=== PATIENT | female | born 1950 | race Caucasian/White ===

== ENCOUNTER 2016-10-25 03:33 | Emergency (ER) | payer MEDICAID ==
[~2016-10-25] VITALS: Ht 165.1 cm; Wt 95.3 kg
[~2016-10-25 03:33] MED LIST: AMLO10TA2 PO; CARV6.252 PO; OMEP20CA10 PO; QUIN10TA PO
[2016-10-25] MEDS ORDERED: LORAZEPAM INJ 2 MG/ML VIAL ONE (03:39)
[2016-10-25] MEDS ORDERED: LORAZEPAM INJ 2 MG/ML VIAL IM ONE (04:00)
[2016-10-25 04:11] LABS: BASOPHILS # (AUTO) 0.1 /CMM (0.0-0.2); DIFF TOTAL % 100 %; EOSINOPHILS # (AUTO) 0.2 /CMM (0.0-0.7); EOSINOPHILS % (AUTO) 1.8 % (0.0-6.0); HEMATOCRIT 42 % (33-45); HEMOGLOBIN 13.8 g/dL (11.5-14.8); LYMPHOCYTES # (AUTO) 3.3 /CMM (0.8-4.8); LYMPHOCYTES % (AUTO) 35.8 % (20.0-44.0); MEAN CORPUSCULAR HEMOGLOBIN 27 PG (26.0-33.0); MEAN CORPUSCULAR HGB CONC 33 g/dl (31.0-36.0); MEAN CORPUSCULAR VOLUME 83 fL (82-100); MONOCYTES # (AUTO) 0.7 /CMM (0.1-1.30); MONOCYTES % (AUTO) 7.8 % (2.0-12.0); NEUTROPHILS % (AUTO) 53.6 % (43.0-81.0); PLATELET COUNT (AUTO) 208 /CMM (150-450); RED BLOOD CELL COUNT(AUTO) 5.05 MIL/uL (4.0-5.2); WHITE BLOOD COUNT (AUTO) 9.3 K/uL (4.3-11.0)
[2016-10-25 04:20] LABS: ANION GAP 9 (5-14); CARBON DIOXIDE 30 mmol/L (21-32); CHLORIDE 102 mmol/L (98-107); CREATININE 0.6 mg/dL (0.6-1.3); GFR 100 mL/min (>60); GLUCOSE 134 mg/dL (74-106); POTASSIUM 3.6 mmol/L (3.5-5.1); SODIUM SERUM 137 mmol/L (136-145); UREA NITROGEN, BLOOD 9 mg/dL (7-18)
[2016-10-25 04:26] LABS: TROPONIN I < 0.017 ng/mL (0.00-0.056)
[2016-10-25 04:39] VITALS: BP 112/70
== END 2016-10-25 04:40 | disposition home or self-care (01) ==
LOC: ER 03:36
DX: R07.89 Other chest pain (principal); E03.9 Hypothyroidism, unspecified; F41.9 Anxiety disorder, unspecified; I10 Essential (primary) hypertension; Z88.8 Allergy status to other drugs, medicaments and biological substances
CPT/HCPCS: 36415; 71010; 80048; 84484; 85025; 93005; 96372; 99285; A4606; J2060; Z7610

== ENCOUNTER 2018-05-15 20:48 | Emergency (ER) | payer MEDICARE, MEDICAID ==
[~2018-05-15] VITALS: Ht 162.6 cm; Wt 86.2 kg
[~2018-05-15 20:48] MED LIST changes: -AMLO10TA2 PO; +AMLO10TA6 PO
--- NOTE | 2018-05-15 21:17 | NUR ---
BBSELF FROM HOME C/C DULL LEFT SIDED CHEST PAIN RADIATING TO THE BACK X 3 DAYS . PT DID NOT TAKE HER ASA THIS MORNING. SKIN WARM AND DRY. PT IS AAOX4. RR EVEN AND UNLABORED. NO S/S OF ACUTE DISTRESS NOTED. PT AMBULATED WITH STEADY GAIT NOTED TO ER BED 7. PT PLACED ON LITERACY CONSULTANT AND POX. PT SAFETY AND COMFORT MEASURES IN PLACE. BEDSIDE FOR EVAL.
--- NOTE | 2018-05-15 21:19 | NUR ---
PT STATES +NAUSEA AND HEADACHE X3 DAYS. MADE AWARE
[2018-05-15 21:42] LABS: BASOPHILS # (AUTO) 0.1 /CMM (0.0-0.2); BASOPHILS % (AUTO) 0.7 % (0.0-2.0); EOSINOPHILS % (AUTO) 2.3 % (0.0-6.0); HEMATOCRIT 42 % (33-45); HEMOGLOBIN 13.9 g/dL (11.5-14.8); LYMPHOCYTES # (AUTO) 3.2 /CMM (0.8-4.8); LYMPHOCYTES % (AUTO) 37.1 % (20.0-44.0); MEAN CORPUSCULAR HGB CONC 33 g/dl (31.0-36.0); MEAN CORPUSCULAR VOLUME 84 fL (82-100); MONOCYTES # (AUTO) 0.5 /CMM (0.1-1.30); MONOCYTES % (AUTO) 5.7 % (2.0-12.0); NEUTROPHILS # (AUTO) 4.6 /CMM (1.8-8.9); NEUTROPHILS % (AUTO) 54.2 % (43.0-81.0); PLATELET COUNT (AUTO) 228 /CMM (150-450); RDW COEFFICIENT OF VARIATION 13.9 (11.5-15.0); RED BLOOD CELL COUNT(AUTO) 5.02 MIL/uL (4.0-5.2); WHITE BLOOD COUNT (AUTO) 8.6 K/uL (4.3-11.0)
[2018-05-15 21:50] LABS: CALCIUM, SERUM 8.7 mg/dL (8.5-10.1); CARBON DIOXIDE 30 mmol/L (21-32); CHLORIDE 102 mmol/L (98-107); CREATININE 0.7 mg/dL (0.6-1.3); GLUCOSE 162 mg/dL (74-106); SODIUM SERUM 135 mmol/L (136-145); UREA NITROGEN, BLOOD 11 mg/dL (7-18)
[2018-05-15 21:59] LABS: TROPONIN I < 0.017 ng/mL (0.00-0.056)
[2018-05-15] MEDS ORDERED: IV NS 0.9% 250 ML IV ONE (23:08)
[2018-05-15] MEDS ORDERED: CT SWABBABLE VALVE TRANS SET 1 EA INFUS.SET MC ONE (23:08)
[2018-05-15] MEDS ORDERED: IOHEXOL-350 100 ML VIAL IV ONE (23:08)
--- NOTE | 2018-05-15 23:16 | NUR ---
PT TO CT
--- NOTE | 2018-05-16 01:16 | NUR ---
Patient discharged to home in stable condition. Written and verbal after care instructions given. Patient verbalizes understanding of instruction.IV removed. Catheter intact and site benign. Pressure and 4x4 applied to site. No bleeding noted.
[2018-05-16 01:19] VITALS: BP 149/80
== END 2018-05-16 01:28 | disposition home or self-care (01) ==
LOC: ER 20:55
DX: S29.012A Strain of muscle and tendon of back wall of thorax, initial encounter (principal); I10 Essential (primary) hypertension; F41.9 Anxiety disorder, unspecified; E03.9 Hypothyroidism, unspecified; E78.00 Pure hypercholesterolemia, unspecified; Z98.890 Other specified postprocedural states; X58.XXXA Exposure to other specified factors, initial encounter; Y93.89 Activity, other specified; Y92.89 Other specified places as the place of occurrence of the external cause; Y99.8 Other external cause status
CPT/HCPCS: 36415; 71045; 71275; 80048; 84484; 85025; 93005; 99285; A4606; J7050; Q9967; Z7610

== ENCOUNTER 2019-02-13 12:58 | Emergency (ER) | payer MEDICARE, MEDICAID ==
[~2019-02-13] VITALS: Ht 165.1 cm; Wt 88.9 kg
[~2019-02-13 12:58] MED LIST changes: -AMLO10TA6 PO; +AMLO10TA7 PO; -OMEP20CA10 PO; +OMEP20CA11 PO
--- NOTE | 2019-02-13 13:04 | NUR ---
BIBDAUGHTER FOR CP X COUPLE OF DAYS; PT AAOX4, -SOB, NAD NOTED, PT ON MONITOR, VSS, PENDING MD YANG
[2019-02-13 13:45] LABS: BASOPHILS # (AUTO) 0.1 /CMM (0.0-0.2); BASOPHILS % (AUTO) 1.3 % (0.0-2.0); EOSINOPHILS % (AUTO) 2.2 % (0.0-6.0); HEMATOCRIT 41 % (33-45); HEMOGLOBIN 14.1 g/dL (11.5-14.8); LYMPHOCYTES # (AUTO) 2.7 /CMM (0.8-4.8); LYMPHOCYTES % (AUTO) 35.4 % (20.0-44.0); MEAN CORPUSCULAR HGB CONC 34 g/dl (31.0-36.0); MEAN CORPUSCULAR VOLUME 85 fL (82-100); MONOCYTES # (AUTO) 0.7 /CMM (0.1-1.30); MONOCYTES % (AUTO) 9.2 % (2.0-12.0); NEUTROPHILS % (AUTO) 51.9 % (43.0-81.0); PLATELET COUNT (AUTO) 175 /CMM (150-450); RED BLOOD CELL COUNT(AUTO) 4.84 MIL/uL (4.0-5.2); WHITE BLOOD COUNT (AUTO) 7.7 K/uL (4.3-11.0)
[2019-02-13 14:06] LABS: CALCIUM, SERUM 8.9 mg/dL (8.5-10.1); CARBON DIOXIDE 30 mmol/L (21-32); CHLORIDE 102 mmol/L (98-107); CREATININE 0.5 mg/dL (0.6-1.3); GLUCOSE 123 mg/dL (74-106); POTASSIUM 4.1 mmol/L (3.5-5.1); SODIUM SERUM 138 mmol/L (136-145); UREA NITROGEN, BLOOD 8 mg/dL (7-18)
[2019-02-13] MEDS ORDERED: ACETAMINOPHEN 325 MG TABLET ONE (14:57)
[2019-02-13] MEDS ORDERED: ACETAMINOPHEN 325 MG TABLET PO ONE (15:00)
--- NOTE | 2019-02-13 16:12 | NUR ---
Patient discharged to home in stable condition. Written and verbal after care instructions given. Patient verbalizes understanding of instruction. IV removed. Catheter intact and site benign. Pressure and 4x4 applied to site. No bleeding noted.
[2019-02-13 16:13] VITALS: BP 119/59
== END 2019-02-13 16:16 | disposition home or self-care (01) ==
LOC: ER 12:58
DX: R07.89 Other chest pain (principal); I10 Essential (primary) hypertension; E11.9 Type 2 diabetes mellitus without complications; E78.5 Hyperlipidemia, unspecified; F41.9 Anxiety disorder, unspecified; E78.00 Pure hypercholesterolemia, unspecified; E03.9 Hypothyroidism, unspecified; Z88.6 Allergy status to analgesic agent
CPT/HCPCS: 36415; 71045-TC; 80048-TC; 84484-TC; 85025-TC

== ENCOUNTER 2021-11-16 23:22 | Inpatient (IN) | payer MEDICAID, MEDICARE ==
[~2021-11-16] VITALS: Ht 152.4 cm; Wt 87.5 kg
[~2021-11-16 23:22] MED LIST changes: +AMLO-213 PO; -AMLO10TA7 PO; -OMEP20CA11 PO; +OMEP20CA15 PO
[2021-11-16] MEDS ORDERED: CT SWABBABLE VALVE TRANS SET 1 EA INFUS.SET MC ONE (23:33)
[2021-11-16] MEDS ORDERED: IOHEXOL-350 100 ML VIAL IV ONE (23:33)
[2021-11-16] MEDS ORDERED: IV NS 0.9% 250 ML IV ONE (23:33)
--- NOTE | 2021-11-16 23:38 | NUR ---
ISMAEL 102 FROM HOME FOR C/O DIZZINESS, BLURRED VISION AND HIGH BP X 2 DAYS. PT AWAKE AND ALERT X4 NO NEURO DEFECITS NOTED. PT CHANGED INTO A GOWN AND PLACED ON MONITOR AND IS HYPERTENSIVE. AWARE AND WAS AT BEDSIDE FOR EVAL.
--- NOTE | 2021-11-16 23:44 | NUR ---
PT TRANSPORTED TO CT SCAN VIA [facility]
[2021-11-17 00:22] LABS: CALCIUM, SERUM 8.5 mg/dL (8.5-10.1); CARBON DIOXIDE 28 mmol/L (21-32); CHLORIDE 100 mmol/L (98-107); CREATININE 0.6 mg/dL (0.6-1.3); GLUCOSE 266 mg/dL (74-106); POTASSIUM 3.6 mmol/L (3.5-5.1); SODIUM SERUM 136 mmol/L (136-145); UREA NITROGEN, BLOOD 10 mg/dL (7-18)
[2021-11-17 00:38] LABS: BASOPHILS # (AUTO) 0.1 K/uL (0.0-0.2); MEAN CORPUSCULAR HGB CONC 34 g/dl (31.0-36.0); MEAN CORPUSCULAR VOLUME 82 fL (82-100); MONOCYTES # (AUTO) 0.7 K/uL (0.1-1.30); NEUTROPHILS # (AUTO) 4.8 K/uL (1.8-8.9); WHITE BLOOD COUNT (AUTO) 8.9 K/uL (4.3-11.0)
[2021-11-17 00:45] LABS: EOSINOPHILS % (AUTO) 2.7 % (0.0-6.0); HEMATOCRIT 44 % (33-45); HEMOGLOBIN 15.1 g/dL (11.5-14.8); LYMPHOCYTES # (AUTO) 3.1 K/uL (0.8-4.8); LYMPHOCYTES % (AUTO) 34.8 % (20.0-44.0); MONOCYTES % (AUTO) 7.8 % (2.0-12.0); NEUTROPHILS % (AUTO) 53.7 % (43.0-81.0); PLATELET COUNT (AUTO) 214 K/uL (150-450)
--- NOTE | 2021-11-17 01:32 | NUR ---
URINE COLLECTED AND SENT TO LAB
[2021-11-17 01:45] LABS: BILIRUBIN,URINE NEGATIVE (NEGATIVE); COLOR,URINE YELLOW (YELLOW); LEUKOCYTE ESTERASE ,URINE SMALL (NEGATIVE); NITRITE, URINE NEGATIVE (NEGATIVE); PROTEIN,URINE NEGATIVE (NEGATIVE); UGLUCOSE >=1000 mg/dL (NEGATIVE); UROBILINOGEN,URINE 0.2 EU/dL (0.2)
[2021-11-17 01:51] LABS: RBC,URINE 0-2 /HPF (0-2)
[2021-11-17 01:52] LABS: BACTERIA,URINE None seen /HPF (None Seen)
--- NOTE | 2021-11-17 02:48 | NUR ---
COVID SWAB COLLECTED AND SENT TO LAB
--- NOTE | 2021-11-17 04:44 | NUR ---
REPORT GIVEN TO CRYSTAL
[2021-11-17 04:45] VITALS: BP 156/72
--- NOTE | 2021-11-17 04:57 | NUR ---
PT TRANSPORTED TO ROOM 112 ON QUALITY REP PER [employer]S PROTOCOL.
[2021-11-17] MEDS ORDERED: IV NS 0.9% 1,000 ML IV PRN (06:00)
[2021-11-17] MEDS ORDERED: ONDANSETRON HCL/PF 4 MG/2 ML VIAL IVP PRN (06:00)
--- NOTE | 2021-11-17 06:00 | NUR ---
BIT SHARPENER OPERATOR NOTE RECEIVED PT FROM ER, 71 Y/O FEMALE, EQUATORIAL GUINEAN SPEAKING. A/O X 2, NO SOB, NO DISTRESS , NO DISCOMFORT NOTED. ON TELE SR. SKIN ASSESSMENT DONE. NO SKIN ISSUES NOTED. ADMITTING ORDERS CHECKED. DIAGNOSED WITH R/O CVA BY NIKO ARRIETA. ORIENTED PT IN THE ROOM. VSS. WILL CONTINUE TO MONITOR.
[2021-11-17] MEDS: BLOOD SUGAR DIAGNOSTIC 1 EACH STRIP IN SCH ×7 (06:53→23:01)
--- NOTE | 2021-11-17 07:05 | NUR ---
CONCRETE PANEL INSTALLER NOTE PT BS WAS 215. ENDORSED TO DAYSHIFT NURSE TO FOLLOW UP MD. NO DISTRESS AND NO DISCOMFORT NOTED THIS TIME.
[2021-11-17 07:30] LABS: BASOPHILS # (AUTO) 0.1 K/uL (0.0-0.2); BASOPHILS % (AUTO) 0.9 % (0.0-2.0); EOSINOPHILS % (AUTO) 2.2 % (0.0-6.0); HEMATOCRIT 42 % (33-45); HEMOGLOBIN 14.3 g/dL (11.5-14.8); LYMPHOCYTES # (AUTO) 2.7 K/uL (0.8-4.8); LYMPHOCYTES % (AUTO) 30.7 % (20.0-44.0); MEAN CORPUSCULAR HGB CONC 34 g/dl (31.0-36.0); MEAN CORPUSCULAR VOLUME 82 fL (82-100); MONOCYTES # (AUTO) 0.8 K/uL (0.1-1.30); MONOCYTES % (AUTO) 9.4 % (2.0-12.0); NEUTROPHILS % (AUTO) 56.8 % (43.0-81.0); PLATELET COUNT (AUTO) 189 K/uL (150-450); RED BLOOD CELL COUNT(AUTO) 5.16 MIL/uL (4.0-5.2); WHITE BLOOD COUNT (AUTO) 8.8 K/uL (4.3-11.0)
[2021-11-17] MEDS ORDERED: PANTOPRAZOLE 40 MG TABLET.DR PO SCH (07:30)
--- NOTE | 2021-11-17 07:30 | NUR ---
HOUSE PIPING INSPECTOR OPENING NOTE RECEIVED PT IN BED AWAKE . PATIENT IS SAMI SPEAKING. A/O X 2, NO SOB NOTED, NO DISTRESS NOTED , NO DISCOMFORT NOTED. IV ACCESS ON THE LAC # 18 INTACT. ON TELE MONITOR READING SINUS RHYTHM. ABLE TO MAKE NEEDS KNOWN. SAFETY MEASURES IN PLACE. BED IN THE LOWEST POSITION AND LOCKED. CALL LIGHT AND TABLE IN REACH. WILL CONTINUE TO MONITOR.
[2021-11-17 08:03] LABS: ALBUMIN 3.5 g/dL (3.4-5.0); BILIRUBIN,TOTAL 0.3 mg/dL (0.2-1.0); CALCIUM, SERUM 8.8 mg/dL (8.5-10.1); CREATININE 0.6 mg/dL (0.6-1.3); MAGNESIUM 2.2 mg/dL (1.8-2.4); PHOSPHORUS 3.6 mg/dL (2.5-4.9); POTASSIUM 3.6 mmol/L (3.5-5.1); TOTAL PROTEIN, SERUM 7.3 g/dL (6.4-8.2)
[2021-11-17 08:49] LABS: CHOLESTEROL 220 mg/dL (<200); HDL CHOLESTEROL 47 mg/dL (40-60); LDL 148 mg/dL (0-99); TRIGLYCERIDES 130 mg/dL (30-150)
[2021-11-17] MEDS: AMLODIPINE BESYLATE 10 MG TABLET PO SCH (08:49)
[2021-11-17] MEDS: ASPIRIN 81 MG TAB.CHEW PO SCH (08:49)
[2021-11-17] MEDS: CARVEDILOL 6.25 MG TABLET PO SCH ×2 (08:50→18:06)
[2021-11-17] MEDS: LISINOPRIL (10MG) 10 MG TABLET PO SCH (08:50)
[2021-11-17] MEDS: ENOXAPARIN SODIUM 40 MG/0.4 ML DISP.SYRIN SQ SCH (08:51)
--- NOTE | 2021-11-17 10:01 | NUR ---
SW Consult: SW consult requested for stroke consult. Pt who is admitted on 11/17/2021 in [facility] in [facility]. Patient presents alert and oriented x3. Patient presented restless. Patient was cooperative with this screen writer while conducting the assessment. Patient reported that she was brought to the hospital because 2 days ago she was not feeling well due to her blood pressure being high. Patient reported that she has high blood pressure and is diabetic. She stated that she felt dizzy prior to her incident at home. Patient currently states that she feels sleepy and tired. Patient does not have any complaints currently. Patient is a . Patient is disabled and has never been employed. Patient reported prior to this incident she has been fully independent with her ADLs. She reported that she does not use a walker or wheelchair. Patient has one daughter Heather ([phone]) who is involved in the pts care. Patient lives with her daughter who takes care of pt. Pt shared that her address is: [address] [place] [id number], but asked to clarify with her daughter the address. SW attempted to contact patients daughter Heather ([phone]) to gather more collateral, unavailable and SW unable to leave a voicemail due to inbox being full. SW conducted PHQ-9 assessment, notes will be separately documented.
--- NOTE | 2021-11-17 10:04 | NUR ---
Social Work Note/PH9 Post Stroke Depression Screening: construction worker met with patient and conducted a PHQ-9 (Post Stroke Depression Screening) in which the patient score of a level of 25 for depression. Patient does not require a psychiatric consult at this time.
--- NOTE | 2021-11-17 10:05 | NUR ---
SW Family Contact: SW attempted to contact patients gisell Romero ([phone]) to gather more collateral, unavailable and SW unable to leave a voicemail due to inbox being full. SW will attempt to contact again.
--- NOTE | 2021-11-17 10:05 | NUR ---
Social Work Stroke Resources: utility worker met with patient and provided stroke referrals such as: Stroke Family Warmline at (8-105-2-STROKE) and additional information on caring for a stroke survivor ( ). utility worker also educated patient on the signs of Stroke and to immediately call 911. utility worker provided education on the signs of stroke and provided educational packet with information: Dietary food, what stroke is, risks, emotional support, finding support, medical management, and effects of stroke.
[2021-11-17] MEDS ORDERED: DEXTROSE 50%-WATER 50 ML DISP.SYRIN IV PRN (11:30)
--- NOTE | 2021-11-17 12:30 | NUR ---
RN NOTES PATIENT REFUSED INSULIN INJECTION FOR 1200. BLOOD SUGAR WAS 214. EXPLAINED THE BENEFITS AND NECESSITY OF THE MEDICATION IN ALBANIAN LANGUAGE SINCE PATIENT IS DIABETIC. PATIENT STILL REFUSING THE MEDICATION.
[2021-11-17 12:55] LABS: THYROID STIMULATING HORMONE 0.971 uIU/mL (0.358-3.74)
[2021-11-17] MEDS: ACETAMINOPHEN 325 MG TABLET PO PRN ×2 (14:27→22:41)
[2021-11-17] MEDS: METFORMIN 500 MG TABLET PO SCH (17:00)
[2021-11-17] MEDS: INSULIN REGULAR, HUMAN 100 UNIT/ML 3 ML VIAL SQ PRN ×2 (17:34→22:34)
--- NOTE | 2021-11-17 18:44 | NUR ---
DYE HOUSE HELPER CLOSING NOTE PT IN BED AWAKE . PATIENT IS INDONESIAN SPEAKING . A/O X 2, NO SOB NOTED, NO DISTRESS NOTED , NO DISCOMFORT NOTED. IV ACCESS ON THE LAC # 18 INTACT. ON TELE MONITOR READING SINUS RHYTHM. ABLE TO MAKE NEEDS KNOWN. DUE MEDS GIVEN ORDERED. NO DISTRESS NOTED. DAUGHTER BED SIDE. SAFETY MEASURES IN PLACE. BED IN THE LOWEST POSITION AND LOCKED. CALL LIGHT AND TABLE IN REACH. WILL ENDORSE FOR COLBY.
[2021-11-17] MEDS ORDERED: ATORVASTATIN 10 MG TABLET PO SCH (22:00)
[2021-11-18] VITALS: BP 120/70
[2021-11-18] MEDS: BLOOD SUGAR DIAGNOSTIC 1 EACH STRIP IN SCH ×5 (06:00→16:44)
[2021-11-18 07:00] LABS: BASOPHILS # (AUTO) 0.1 K/uL (0.0-0.2); BASOPHILS % (AUTO) 1.1 % (0.0-2.0); EOSINOPHILS % (AUTO) 2.7 % (0.0-6.0); HEMATOCRIT 41 % (33-45); HEMOGLOBIN 13.7 g/dL (11.5-14.8); LYMPHOCYTES # (AUTO) 2.9 K/uL (0.8-4.8); LYMPHOCYTES % (AUTO) 40.9 % (20.0-44.0); MEAN CORPUSCULAR HGB CONC 33 g/dl (31.0-36.0); MEAN CORPUSCULAR VOLUME 82 fL (82-100); MONOCYTES # (AUTO) 0.6 K/uL (0.1-1.30); NEUTROPHILS # (AUTO) 3.3 K/uL (1.8-8.9); NEUTROPHILS % (AUTO) 46.3 % (43.0-81.0); PLATELET COUNT (AUTO) 180 K/uL (150-450); RED BLOOD CELL COUNT(AUTO) 5.02 MIL/uL (4.0-5.2); WHITE BLOOD COUNT (AUTO) 7.1 K/uL (4.3-11.0)
[2021-11-18] MEDS ORDERED: PANTOPRAZOLE 40 MG TABLET.DR PO SCH (07:30)
--- NOTE | 2021-11-18 07:40 | NUR ---
POLICE SERGEANT PRECINCT CLOSING NOTE, PT ASLEEP, PALESTINIAN SPEAKING, A/O X 3, NO SOB ACUTE DISTRESS NOTED, NSR IN TELE MONITOR, PATIENT UNABLE TO UNDERSTAND TO SAY IN BED IF SHE DIZZY, OFFER BED VARELA/COMMODE INSTEAD AND SHE ROTUNDLY REFUSED, PATIENT SAFETY PROVIDED AT ALL TIMES, BED ALARM ON, HIGH RISK FOR FALLS, S/P FALL AT HOME, SAFETY MEASURES IN PLACE, BED IN THE LOWEST POSITION AND LOCKED, EDUCATED TO CALL FOR ASSISTANCE, CALL LIGHT AND ENDORSED TO ASHWIN JAMES FOR COLBY.
[2021-11-18 07:53] LABS: CALCIUM, SERUM 8.4 mg/dL (8.5-10.1); CREATININE 0.5 mg/dL (0.6-1.3); POTASSIUM 3.6 mmol/L (3.5-5.1)
--- NOTE | 2021-11-18 08:23 | NUR ---
RN CLOSING NOTE RECEIVED PATIENT TONGAN SPEAKING, A/O X 3, NO SOB ACUTE DISTRESS NOTED PATIENT ON ROOM AIR. PATIENT REMINDED TO STAY IN BED AND CALL FOR ASSISTANCE IF SHE NEEDS TO GET UP. PATIENT REMINDED OF HER HX OF FALLS. ACTIVATED. PATIENT SAFETY PROVIDED, BED ALARM ON, HIGH RISK FOR FALLS, S/P FALL AT HOME, BED IN THE LOWEST POSITION AND LOCKED, EDUCATED TO CALL FOR ASSISTANCE, CALL LIGHT.
--- NOTE | 2021-11-18 08:28 | NUR ---
RN NOTE PATIENT REFUSED AM VITALS, EDUCATED PATIENT ON IMPORTANCE OF VITAL SIGNS PATIENT STILL DECLINED.
[2021-11-18] MEDS: ENOXAPARIN SODIUM 40 MG/0.4 ML DISP.SYRIN SQ SCH (09:33)
[2021-11-18] MEDS: INSULIN REGULAR, HUMAN 100 UNIT/ML 3 ML VIAL SQ PRN ×2 (09:34→16:47)
[2021-11-18] MEDS: CARVEDILOL 6.25 MG TABLET PO SCH ×2 (09:34→16:33)
[2021-11-18] MEDS: METFORMIN 500 MG TABLET PO SCH ×2 (09:34→16:32)
[2021-11-18] MEDS: LISINOPRIL (10MG) 10 MG TABLET PO SCH (09:35)
[2021-11-18] MEDS: ASPIRIN 81 MG TAB.CHEW PO SCH (09:35)
[2021-11-18] MEDS: AMLODIPINE BESYLATE 10 MG TABLET PO SCH (09:35)
--- NOTE | 2021-11-18 12:00 | NUR ---
RN NOTE PATIENT REFUSED BLOOD SUGAR CHECK FOR 1200. EDUCATED PATIENT ON IMPORTANCE. PER PATIENT SHE DOES NOT WANT ANYBODY TO TOUCH HER UNTIL HER DAUGHTERS ARE HERE. PATIENT HAS BEEN UNCOOPERATIVE THROUGH OUT SHIFT, SPRAY GUN STRIPER INFORMED.
[2021-11-18] MEDS ORDERED: ATOR10TA PO (14:24)
[2021-11-18] MEDS ORDERED: METF-440 PO (14:24)
--- NOTE | 2021-11-18 15:35 | NUR ---
RN NOTE PATIENT FOUND ATTEMPTING TO GET UP FROM BED, HOLDING ON TO SIDE SIDE RAIL. ASSISTED PATIENT BACK TO BED RE EDUCATED HER TO NOT GET UP FROM BED WITHOUT ASSISTANCE. Addendum: 11/18/21 at 1544 by AVRIL THACKER RN ASSESSED PATIENT ASKED OF SHE HAD FALLEN. PATIENT STATED SHE DID NOT FALL BUT WAS TRYING TO GET UP FROM BED AND FELT DIZZY. BED ALARM WAS ACTIVATED. ALARM WAS ACTIVATED PRIOR TO FINDING.
[2021-11-18 16:33] VITALS: BP 145/73
--- NOTE | 2021-11-18 19:36 | NUR ---
RN NOTE PATIENT DISCHARGED, TAKEN HOME BY DAUGHTER.
== END 2021-11-18 17:13 | disposition home health service (06) | DRG 111 ==
LOC: ER 23:24 → TELE1 11-17 04:35
DX: H81.399 Other peripheral vertigo, unspecified ear (principal); E03.9 Hypothyroidism, unspecified; R27.0 Ataxia, unspecified; I10 Essential (primary) hypertension; Z20.822 Contact with and (suspected) exposure to COVID-19; F41.9 Anxiety disorder, unspecified; E78.5 Hyperlipidemia, unspecified; Z88.8 Allergy status to other drugs, medicaments and biological substances; Z79.899 Other long term (current) drug therapy; E66.9 Obesity, unspecified; Z68.37 Body mass index [BMI] 37.0-37.9, adult; E11.9 Type 2 diabetes mellitus without complications
CPT/HCPCS: 36415; 70450-TC; 70496-TC; 70498-TC; 70551-TC; 71045-TC; 80048-TC; 80053-TC; 80061-TC; 81001; 82962-TC; 83735-TC; 83880; 84100-TC; 84443-TC; 84484-TC; 85025-TC; 85652-TC; 85730-TC; 87086-TC; 92526; 92611-TC; 93307-TC; 97116-TC; 97530-TC; C9803; G0378; J1650; J1815; J7030; J7050; Q9967

== ENCOUNTER 2023-11-15 17:03 | Emergency (ER) | payer MEDICARE, OTHER ==
[~2023-11-15] VITALS: Ht 165.1 cm; Wt 83.9 kg
[~2023-11-15 17:03] MED LIST changes: +ATOR10TA PO; +METF-440 PO
[2023-11-15 17:35] VITALS: TEMP 98.1
[2023-11-15] MEDS ORDERED: ONDANSETRON HCL/PF 4 MG/2 ML VIAL ONE (18:01)
[2023-11-15] MEDS: ONDANSETRON HCL/PF 4 MG/2 ML VIAL IVP ONE (18:10)
[2023-11-15] MEDS: IV NS 0.9% 1,000 ML BAG IV ONE (18:10)
[2023-11-15 18:20] LABS: BASOPHILS # (AUTO) 0.1 K/uL (0.0-0.2); BASOPHILS % (AUTO) 0.8 % (0.0-2.0); EOSINOPHILS # (AUTO) 0.2 K/uL (0.0-0.7); EOSINOPHILS % (AUTO) 1.4 % (0.0-6.0); HEMATOCRIT 43 % (33-45); HEMOGLOBIN 14.1 g/dL (11.5-14.8); LYMPHOCYTES # (AUTO) 3.8 K/uL (0.8-4.8); LYMPHOCYTES % (AUTO) 34.5 % (20.0-44.0); MEAN CORPUSCULAR HEMOGLOBIN 27 PG (26.0-33.0); MEAN CORPUSCULAR HGB CONC 33 g/dl (31.0-36.0); MEAN CORPUSCULAR VOLUME 82 fL (82-100); MONOCYTES # (AUTO) 0.8 K/uL (0.1-1.30); MONOCYTES % (AUTO) 7.2 % (2.0-12.0); NEUTROPHILS # (AUTO) 6.2 K/uL (1.8-8.9); NEUTROPHILS % (AUTO) 56.1 % (43.0-81.0); PLATELET COUNT (AUTO) 228 K/uL (150-450); RED BLOOD CELL COUNT(AUTO) 5.22 MIL/uL (4.0-5.2); RED CELL DISTRIBUTION WIDTH 15.2 % (11.5-15.0); WHITE BLOOD COUNT (AUTO) 11.1 K/uL (4.3-11.0)
[2023-11-15 18:43] LABS: ALANINE AMINOTRANSFERASE 51 U/L (12-78); ALBUMIN 3.6 g/dL (3.4-5.0); ALKALINE PHOSPHATASE 124 U/L (46-116); ASPARTATE AMINOTRANSFERASE 42 U/L (15-37); BILIRUBIN,DIRECT 0.1 mg/dL (0.0-0.2); BILIRUBIN,TOTAL 0.4 mg/dL (0.2-1.0); CALCIUM, SERUM 9.1 mg/dL (8.5-10.1); CARBON DIOXIDE 27 mmol/L (21-32); CHLORIDE 100 mmol/L (98-107); CREATININE 0.6 mg/dL (0.6-1.3); GLUCOSE 118 mg/dL (74-106); LIPASE 14 U/L (16-77); POTASSIUM 4.1 mmol/L (3.5-5.1); SODIUM SERUM 135 mmol/L (136-145); TOTAL PROTEIN, SERUM 7.8 g/dL (6.4-8.2); UREA NITROGEN, BLOOD 13 mg/dL (7-18)
[2023-11-15] MEDS ORDERED: ONDA4TAB11 PO (20:16)
[2023-11-15 20:36] VITALS: BP 147/84; O2SAT 98
== END 2023-11-15 20:36 | disposition home or self-care (01) ==
LOC: ER 17:08
DX: R11.2 Nausea with vomiting, unspecified (principal); T50.995A Adverse effect of other drugs, medicaments and biological substances, initial encounter; I10 Essential (primary) hypertension; E11.9 Type 2 diabetes mellitus without complications; F41.9 Anxiety disorder, unspecified; E03.9 Hypothyroidism, unspecified; Z90.49 Acquired absence of other specified parts of digestive tract; Z88.8 Allergy status to other drugs, medicaments and biological substances; Z79.899 Other long term (current) drug therapy; Y92.89 Other specified places as the place of occurrence of the external cause
CPT/HCPCS: 99285; 96374; 71045; 96361; 93005; 85025; 80048; 83690; 80076; 36415; 84484; J2405; J7030

== ENCOUNTER 2024-04-03 15:45 | Inpatient (IN) | payer MEDICARE, OTHER ==
[~2024-04-03] VITALS: Ht 160 cm; Wt 91.6 kg
[~2024-04-03 15:45] MED LIST changes: +ONDA4TAB11 PO
[2024-04-03] MEDS ORDERED: HYDROCODONE/APAP 5/325MG TABLET ONE (17:01)
[2024-04-03] MEDS: HYDROCODONE/APAP 5/325MG TABLET PO ONE (17:06)
[2024-04-03] MEDS ORDERED: ENOXAPARIN SODIUM 60 MG/0.6 ML DISP.SYRIN SQ ONE (17:46)
[2024-04-03] MEDS ORDERED: ENOXAPARIN SODIUM 30 MG/0.3 ML DISP.SYRIN ONE (17:46)
[2024-04-03] MEDS: ENOXAPARIN SODIUM 80 MG/0.8 ML DISP.SYRIN SQ ONE (17:50)
[2024-04-03 17:53] LABS: BASOPHILS # (AUTO) 0.1 K/uL (0.0-0.2); EOSINOPHILS # (AUTO) 0.2 K/uL (0.0-0.7); EOSINOPHILS % (AUTO) 2.7 % (0.0-6.0); HEMATOCRIT 40 % (33-45); LYMPHOCYTES # (AUTO) 3.8 K/uL (0.8-4.8); LYMPHOCYTES % (AUTO) 46.1 % (20.0-44.0); MEAN CORPUSCULAR HEMOGLOBIN 27 PG (26.0-33.0); MEAN CORPUSCULAR HGB CONC 33 g/dl (31.0-36.0); MEAN CORPUSCULAR VOLUME 82 fL (82-100); MONOCYTES # (AUTO) 0.8 K/uL (0.1-1.30); MONOCYTES % (AUTO) 9.6 % (2.0-12.0); NEUTROPHILS # (AUTO) 3.3 K/uL (1.8-8.9); NEUTROPHILS % (AUTO) 40.6 % (43.0-81.0); PLATELET COUNT (AUTO) 209 K/uL (150-450); RED BLOOD CELL COUNT(AUTO) 4.82 MIL/uL (4.0-5.2); RED CELL DISTRIBUTION WIDTH 14.7 % (11.5-15.0); WHITE BLOOD COUNT (AUTO) 8.2 K/uL (4.3-11.0)
[2024-04-03 18:00] LABS: CARBON DIOXIDE 27 mmol/L (21-32); CHLORIDE 102 mmol/L (98-107); CREATININE 0.6 mg/dL (0.6-1.3); GLUCOSE 169 mg/dL (74-106); POTASSIUM 4.1 mmol/L (3.5-5.1); SODIUM SERUM 136 mmol/L (136-145); UREA NITROGEN, BLOOD 17 mg/dL (7-18)
[2024-04-03 18:04] LABS: INR 0.9 (0.91-1.10); PARTIAL THROMBOPLASTIN TIME 25.8 SEC (24.3-34.3); PROTHROMBIN TIME 9.3 SECS (9.2-11.1)
[2024-04-03] MEDS ORDERED: METF-442 PO (18:20)
[2024-04-03] MEDS ORDERED: AMLO5TAB4 PO (18:20)
[2024-04-03] MEDS ORDERED: LEVO100T9 PO (18:20)
[2024-04-03] MEDS ORDERED: ERGO500093 PO (18:20)
[2024-04-03] MEDS ORDERED: ASPI-1420 PO (18:20)
[2024-04-03 19:56] LABS: D-DIMER 0.42 mg/L(FEU (0.17-0.50)
[2024-04-03] MEDS ORDERED: IOHEXOL-350 100 ML VIAL IV ONE (20:50)
[2024-04-03] MEDS ORDERED: IV NS 0.9% 250 ML IV ONE (20:51)
[2024-04-03] MEDS ORDERED: CT SWABBABLE VALVE TRANS SET 1 EA INFUS.SET MC ONE (20:51)
[2024-04-03] MEDS ORDERED: ONDANSETRON HCL/PF 4 MG/2 ML VIAL IVP PRN (21:00)
[2024-04-03] MEDS ORDERED: Z GUARD REMEDY 4 OZ OINT TP PRN (21:00)
[2024-04-03] MEDS ORDERED: MAG HYDROX/AL HYDROX/SIMETH 30 ML UDC PO PRN (21:00)
[2024-04-03] MEDS ORDERED: ZOLPIDEM TARTRATE 5 MG TABLET PO PRN (21:00)
[2024-04-03] MEDS ORDERED: ACETAMINOPHEN 325 MG TABLET PO PRN (21:00)
[2024-04-03] MEDS ORDERED: MAGNESIUM HYDROXIDE 30 ML UDC PO PRN (21:00)
[2024-04-03] MEDS ORDERED: DEXTROSE 50%-WATER 50 ML DISP.SYRIN IV PRN (21:00)
[2024-04-03 21:45] VITALS: BP 149/59; TEMP 98.1; O2SAT 94
[2024-04-03] MEDS: INSULIN REGULAR, HUMAN 100 UNIT/ML 3 ML VIAL SQ PRN (22:39)
[2024-04-03] MEDS: BLOOD SUGAR DIAGNOSTIC 1 EACH STRIP IN SCH (22:44)
[2024-04-03] MEDS ORDERED: ERGOCALCIFEROL (VITAMIN D 2) 50,000 UNIT CAPSULE PO SCH (23:30)
[2024-04-03] MEDS ORDERED: AMLODIPINE BESYLATE 5 MG TABLET PO PRN (23:30)
[2024-04-04 00:59] VITALS: BP 108/46; TEMP 98.1; O2SAT 96
[2024-04-04 04:22] VITALS: BP 125/62; TEMP 97.5; O2SAT 94
[2024-04-04] MEDS: ENOXAPARIN SODIUM 80 MG/0.8 ML DISP.SYRIN SQ SCH (05:48)
[2024-04-04 06:38] LABS: BASOPHILS # (AUTO) 0.1 K/uL (0.0-0.2); BASOPHILS % (AUTO) 1.1 % (0.0-2.0); EOSINOPHILS # (AUTO) 0.2 K/uL (0.0-0.7); EOSINOPHILS % (AUTO) 2.9 % (0.0-6.0); HEMATOCRIT 40 % (33-45); HEMOGLOBIN 13.3 g/dL (11.5-14.8); LYMPHOCYTES # (AUTO) 3.4 K/uL (0.8-4.8); LYMPHOCYTES % (AUTO) 41.9 % (20.0-44.0); MEAN CORPUSCULAR HEMOGLOBIN 27 PG (26.0-33.0); MEAN CORPUSCULAR HGB CONC 33 g/dl (31.0-36.0); MEAN CORPUSCULAR VOLUME 82 fL (82-100); MONOCYTES # (AUTO) 0.7 K/uL (0.1-1.30); NEUTROPHILS # (AUTO) 3.6 K/uL (1.8-8.9); NEUTROPHILS % (AUTO) 45.1 % (43.0-81.0); PLATELET COUNT (AUTO) 205 K/uL (150-450); RED BLOOD CELL COUNT(AUTO) 4.87 MIL/uL (4.0-5.2); RED CELL DISTRIBUTION WIDTH 14.8 % (11.5-15.0)
[2024-04-04 07:24] LABS: CALCIUM, SERUM 8.1 mg/dL (8.5-10.1); CARBON DIOXIDE 24 mmol/L (21-32); CHLORIDE 102 mmol/L (98-107); CREATININE 0.6 mg/dL (0.6-1.3); GLUCOSE 166 mg/dL (74-106); MAGNESIUM 1.9 mg/dL (1.8-2.4); PHOSPHORUS 3.7 mg/dL (2.5-4.9); POTASSIUM 4.1 mmol/L (3.5-5.1); SODIUM SERUM 137 mmol/L (136-145); UREA NITROGEN, BLOOD 13 mg/dL (7-18)
[2024-04-04 08:00] VITALS: BP 138/52; TEMP 98.3; O2SAT 98
[2024-04-04] MEDS: ASPIRIN EC 81 MG TABLET.DR PO SCH (08:19)
[2024-04-04] MEDS: PANTOPRAZOLE 40 MG VIAL IV SCH (08:20)
[2024-04-04] MEDS: LEVOTHYROXINE SODIUM 100 MCG TABLET PO SCH (08:20)
[2024-04-04] MEDS: CARVEDILOL 6.25 MG TABLET PO SCH (08:20)
[2024-04-04] MEDS: AMLODIPINE BESYLATE 5 MG TABLET PO SCH (08:21)
[2024-04-04 12:05] VITALS: BP 105/55; TEMP 97.7; O2SAT 96
[2024-04-04 16:00] VITALS: BP 144/73; TEMP 97.8; O2SAT 94
[2024-04-04 20:00] VITALS: BP 122/88; TEMP 97.5; O2SAT 96
[2024-04-04] MEDS: OFLOXACIN 0.3% OPHTH 5 ML BOTTLE RIGHTEYE SCH (20:58)
[2024-04-05] VITALS: BP 111/56; TEMP 98.1; O2SAT 97
[2024-04-05] MEDS: HYDROCODONE/APAP 5/325MG TABLET PO PRN
[2024-04-05 04:00] VITALS: BP 102/51; TEMP 98.2; O2SAT 95
[2024-04-05 06:53] LABS: BASOPHILS # (AUTO) 0.1 K/uL (0.0-0.2); EOSINOPHILS # (AUTO) 0.2 K/uL (0.0-0.7); EOSINOPHILS % (AUTO) 2.4 % (0.0-6.0); HEMATOCRIT 39 % (33-45); HEMOGLOBIN 12.7 g/dL (11.5-14.8); LYMPHOCYTES # (AUTO) 2.9 K/uL (0.8-4.8); LYMPHOCYTES % (AUTO) 44.3 % (20.0-44.0); MEAN CORPUSCULAR HEMOGLOBIN 27 PG (26.0-33.0); MEAN CORPUSCULAR HGB CONC 33 g/dl (31.0-36.0); MEAN CORPUSCULAR VOLUME 82 fL (82-100); MONOCYTES # (AUTO) 0.6 K/uL (0.1-1.30); MONOCYTES % (AUTO) 8.7 % (2.0-12.0); NEUTROPHILS # (AUTO) 2.9 K/uL (1.8-8.9); NEUTROPHILS % (AUTO) 43.6 % (43.0-81.0); PLATELET COUNT (AUTO) 189 K/uL (150-450); RED BLOOD CELL COUNT(AUTO) 4.72 MIL/uL (4.0-5.2); RED CELL DISTRIBUTION WIDTH 14.9 % (11.5-15.0); WHITE BLOOD COUNT (AUTO) 6.6 K/uL (4.3-11.0)
[2024-04-05 07:23] LABS: CALCIUM, SERUM 8.4 mg/dL (8.5-10.1); CARBON DIOXIDE 26 mmol/L (21-32); CHLORIDE 103 mmol/L (98-107); CREATININE 0.5 mg/dL (0.6-1.3); GLUCOSE 148 mg/dL (74-106); MAGNESIUM 1.8 mg/dL (1.8-2.4); PHOSPHORUS 3.6 mg/dL (2.5-4.9); POTASSIUM 4.1 mmol/L (3.5-5.1); SODIUM SERUM 138 mmol/L (136-145); UREA NITROGEN, BLOOD 11 mg/dL (7-18)
[2024-04-05 08:00] VITALS: BP 126/68; TEMP 98.4; O2SAT 94
[2024-04-05] MEDS: PANTOPRAZOLE 40 MG TABLET.DR PO SCH (08:26)
[2024-04-05 08:28] VITALS: BP 126/68
[2024-04-05] MEDS: CLOTRIMAZOLE 1% 15 GM TUBE TP SCH (08:29)
[2024-04-05] MEDS ORDERED: APIX5TAB PO (09:58)
[2024-04-05] MEDS ORDERED: HYDR-4303 PO (09:58)
[2024-04-05] MEDS: POLYVINYL ALCOHOL 15 ML BOTTLE EACHEYE PRN (12:37)
[2024-04-06] MEDS ORDERED: OFLOXACIN 0.3% OPHTH 5 ML BOTTLE RIGHTEYE SCH
== END 2024-04-05 13:05 | disposition home or self-care (01) | DRG 923 ==
LOC: ER 16:03 → TELE 20:22 → MED 04-05 10:19
PROC: 3E013GC Introduction of Other Therapeutic Substance into Subcutaneous Tissue, Percutaneous Approach (ICD-10-PCS; principal; 2024-04-03)
PROC: 2W0CX1Z Change Splint on Right Lower Arm (ICD-10-PCS; 2024-04-03)
DX: T79.8XXA Other early complications of trauma, initial encounter (principal); I82.621 Acute embolism and thrombosis of deep veins of right upper extremity; E03.9 Hypothyroidism, unspecified; E11.9 Type 2 diabetes mellitus without complications; S52.591D Other fractures of lower end of right radius, subsequent encounter for closed fracture with routine healing; W19.XXXD Unspecified fall, subsequent encounter; E78.5 Hyperlipidemia, unspecified; E66.9 Obesity, unspecified; F41.9 Anxiety disorder, unspecified; I10 Essential (primary) hypertension; R06.02 Shortness of breath; Z90.49 Acquired absence of other specified parts of digestive tract; Z88.6 Allergy status to analgesic agent; Z79.890 Hormone replacement therapy; Z79.84 Long term (current) use of oral hypoglycemic drugs; Z79.82 Long term (current) use of aspirin; Z79.899 Other long term (current) drug therapy; Z68.32 Body mass index [BMI] 32.0-32.9, adult
CPT/HCPCS: 36415; 73110; 80048-TC; 82962-TC; 83735-TC; 84100-TC; 85025-TC; 85378-TC; 85730-TC; 93971-TC; 97110-TC; 97116-TC; 97530-TC; G0378; J1650; J1815; J2470; J7050; Q9967